=== PATIENT | male | born 1995 | race Caucasian/White ===

== ENCOUNTER 2020-05-17 12:51 | Emergency (ER) | payer MEDICAID, OTHER ==
[~2020-05-17] VITALS: Ht 167.6 cm; Wt 86.5 kg
[~2020-05-17 12:51] MED LIST: NONE PER PT
[2020-05-17 15:07] VITALS: BP 137/81
--- NOTE | 2020-05-17 15:22 | NUR ---
ULYSSES CRUZ AT BEDSIDE.
[2020-05-17] MEDS ORDERED: HYDROmorphone 1 MG/ML, 1ML INJ ONE (15:28)
--- NOTE | 2020-05-17 15:30 | NUR ---
VERBAL ORDER FOR 1MG DILAUDID IM FROM ULYSSES CRUZ. PT MEDICATED. CONNECTED TO ALL MONITORING, VSS, NADN. AWAITING ORTHO CONSULT.
--- NOTE | 2020-05-17 15:35 | NUR ---
PT REPORTS LAST PO AT 1200PM TODAY.
[2020-05-17] MEDS ORDERED: HYDROmorphone 1 MG/ML, 1ML INJ IM PRN (16:00)
--- NOTE | 2020-05-17 16:37 | NUR ---
TASK RN: SPLINT APPLIED. +DISTAL CMS. PT PROVIDED CRUTCHES. DC EDUCATION PROVIDED BY ROMINA SIMON. PT CRUTCH WALKED STEADILY TO DC WITH [facility]. FRIEND TO TRANSPORT PT HOME.
--- NOTE | 2020-05-17 16:38 | NUR ---
Patient given discharge instructions and they have confirmed that they understand the instructions. Patient ambulatory with steady gait.
== END 2020-05-17 16:39 | disposition home or self-care (01) ==
LOC: ED 16:30
DX: S82.455A Nondisplaced comminuted fracture of shaft of left fibula, initial encounter for closed fracture (principal); M79.89 Other specified soft tissue disorders; W19.XXXA Unspecified fall, initial encounter; Y93.89 Activity, other specified; Y92.098 Other place in other non-institutional residence as the place of occurrence of the external cause; Y99.8 Other external cause status
CPT/HCPCS: 29515; 73590; 73610; 96372; 99284; J1170; 29125